=== PATIENT | female | born 1980 | race Caucasian/White ===

== ENCOUNTER → 2021-07-26 08:08 | Outpatient (CLI) | payer BC, SELFPAY ==
[2021-07-26 09:20] LABS: Appearance Urine UA CLEAR; Bilirubin Urine UA NEGATIVE (NEGATIVE); Color Urine UA YELLOW; Glucose Urine UA NEGATIVE (Negative); Ketones Urine UA NEGATIVE (NEGATIVE); Leukocyte Esterase Urine UA TRACE (NEGATIVE); Nitrite Urine UA POSITIVE (Negative); Occult Blood Urine UA TRACE-LYSED (Negative); Protein Urine UA NEGATIVE (Negative); Urobilinogen Urine UA 0.2 E.U./dL (0.2)
[2021-07-26 09:32] LABS: Bacteria Urine Many (>30); RBC Urine 1-5/HPF (0-5/HPF); Squamous Epithelial Cell Urine 1-5 /HPF (0-5/HPF); WBC Urine 1-5/HPF (0-5/HPF)
[2021-07-26 09:51] LABS: Add Manual Diff / Slide Review NO; Basophils Absolute Auto 100 /uL (0-100); Basophils Percent Auto 0.6 % (0-2); Eosinophils Absolute Auto 100 /uL (0-450); Eosinophils Percent Auto 0.7 % (2-4); Hematocrit 40.2 % (36-46); Hemoglobin 13.5 g/dL (12.0-16.0); Lymphocytes Absolute Auto 1700 /uL (1100-4500); Lymphocytes Percent Auto 18.9 % (25-40); Mean Corpuscular HGB Conc 33.6 % (30-36); Mean Corpuscular Hemoglobin 30.4 PG (26-34); Mean Corpuscular Volume 90.5 fL (80-100); Monocytes Absolute Auto 700 /uL (0-900); Monocytes Percent Auto 8.1 % (3-14); Neutrophils Absolute Auto 6300 /uL (1500-7000); Neutrophils Percent Auto 71.7 % (50-75); Platelet Count 328 X10^3/uL (150-400); Red Blood Cell Count 4.45 X10^6/uL (4.0-5.2); Red Cell Distribution Width 12.9 % (11.6-14.8); White Blood Cell Count 8.8 X10^3/uL (4.5-11.0)
[2021-07-26 10:55] LABS: Hepatitis B Surface Antigen NEGATIVE s/c (NEGATIVE); Rubella Antibody IgG 52.6 IU/mL (>15)
[2021-07-26 11:10] LABS: HIV 1 & 2 Ab/Ag 4th Gen Combo NEGATIVE (NEGATIVE); Hep C Virus Ab w/Reflex Quant NEGATIVE s/c (NEGATIVE)
[2021-07-27 06:39] LABS: RPR Screen Non Reactive (Non Reactive)
[2021-07-27 10:51] LABS: Varicella IgG Antibody 353 index (Immune >165)
== END ==
PROVIDERS: Referring Provider Specialist; Visit Provider Specialist
DX: Z34.81 Encounter for supervision of other normal pregnancy, first trimester (principal); Z11.3 Encounter for screening for infections with a predominantly sexual mode of transmission; Z3A.08 8 weeks gestation of pregnancy
CPT/HCPCS: 36415; 80055; 81003; 81015; 86787; 86803; 86850; 86900; 86901; 87077; 87086; 87186; 87389

== ENCOUNTER → 2021-08-18 12:54 | Outpatient (CLI) | payer BC, SELFPAY ==
[2021-08-18 17:02] LABS: Urine Chlamydia NOT DETECTED; Urine N gonorrhoeae NOT DETECTED
== END ==
PROVIDERS: PCP Family Medicine; Referring Provider Specialist; Visit Provider Specialist
DX: O09.521 Supervision of elderly multigravida, first trimester (principal); O26.21 Pregnancy care for patient with recurrent pregnancy loss, first trimester; Z36.0 Encounter for antenatal screening for chromosomal anomalies; Z3A.11 11 weeks gestation of pregnancy
CPT/HCPCS: 36415; 81420; 87491; 87591

== ENCOUNTER → 2021-09-21 12:34 | Outpatient (CLI) | payer BC, SELFPAY ==
[2021-09-23 20:51] LABS: AFP Value 38.6 ng/mL (.); Gest Age on Col Date 16.4 weeks (.); Gestational Age Ultrasound (.); Insulin Dep Diabetes No (.); OSBR Risk 1IN 10000 (.); Results Report (.); Test Results *Screen Negative* (.)
== END ==
PROVIDERS: PCP Family Medicine; Referring Provider Specialist; Visit Provider Specialist
DX: Z34.82 Encounter for supervision of other normal pregnancy, second trimester (principal); Z3A.16 16 weeks gestation of pregnancy
CPT/HCPCS: 36415; 82105

== ENCOUNTER → 2022-02-08 11:23 | Outpatient (CLI) | payer BC, SELFPAY ==
[2022-02-09 08:01] LABS: Strep Grp B PCR NEG for Grp B Strep
== END ==
PROVIDERS: PCP Family Medicine; Visit Provider Specialist
DX: Z34.83 Encounter for supervision of other normal pregnancy, third trimester (principal); Z3A.36 36 weeks gestation of pregnancy
CPT/HCPCS: 87653

== ENCOUNTER 2022-02-11 23:34 | Inpatient (IN) | payer BC, SELFPAY ==
[2022-02-12 00:27] VITALS: BP 118/77
[2022-02-12 01:00] LABS: Add Manual Diff / Slide Review NO; Basophils Absolute Auto 100 /uL (0-100); Basophils Percent Auto 0.4 % (0-2); Eosinophils Absolute Auto 100 /uL (0-450); Eosinophils Percent Auto 0.7 % (2-4); Hematocrit 31.9 % (36-46); Hemoglobin 10.6 g/dL (12.0-16.0); Lymphocytes Absolute Auto 1900 /uL (1100-4500); Lymphocytes Percent Auto 13.1 % (25-40); Mean Corpuscular HGB Conc 33.3 % (30-36); Mean Corpuscular Hemoglobin 28.5 PG (26-34); Mean Corpuscular Volume 85.7 fL (80-100); Monocytes Absolute Auto 1100 /uL (0-900); Monocytes Percent Auto 7.9 % (3-14); Neutrophils Absolute Auto 11300 /uL (1500-7000); Neutrophils Percent Auto 77.9 % (50-75); Platelet Count 258 X10^3/uL (150-400); Red Blood Cell Count 3.72 X10^6/uL (4.0-5.2); Red Cell Distribution Width 15.1 % (11.6-14.8); White Blood Cell Count 14.5 X10^3/uL (4.5-11.0)
[2022-02-12 01:49] LABS: COVID19 -Nasal RAPID Negative (Negative)
[2022-02-12] MEDS: LACTATED RINGERS 1,000 ML 100 ML IV ×3 (04:09→17:11)
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
[2022-02-12] MEDS: OXYTOCIN PREMIX 30 UNIT/500 ML PLAST..BAG IV (08:31)
--- NOTE | 2022-02-12 13:48 | PM.OBPNLAB ---
Date/Time Date Patient Seen: 02/12/22 Time Patient Seen: 13:48 Pain Control Pain control: tolerating well Contractions Contractions on admission: regular Monitor mode: External Pitocin rate (mU/min): 7 Contraction frequency (min): 3 Contraction duration (min): 1 Contraction pattern: Regular Contraction intensity: Moderate Status status: Category ll Heart Rate Baseline: 125 Monitor Accelerations: Present Monitor Decelerations: Late (Resolved with fluid bolus) Monitor Variability: Moderate Assessment and Plan Assessment: induction ongoing Plan: continuous present management
--- NOTE | 2022-02-12 17:30 | PM.OBPNLAB ---
Date/Time Date Patient Seen: 02/12/22 Time Patient Seen: 17:30 Pain Control Pain control: tolerating well Pelvic Exam Dilation (cm): 4 Effacement (%): 80 station: 0 Amniotic membrane status: Ruptured Contractions Contractions on admission: regular Monitor mode: External Pitocin rate (mU/min): 12 Contraction frequency (min): 3 Contraction duration (min): 1 Contraction pattern: Regular Contraction intensity: Moderate Status status: Category l Heart Rate Baseline: 125 Monitor Accelerations: Present Monitor Decelerations: Absent Monitor Variability: Moderate Assessment and Plan Assessment: induction ongoing Comments: Patient coming up on 24 hour rupture membranes will start IV antibiotics.
[2022-02-12] MEDS: CEFAZOLIN 2 GM/20 ML SYRINGE IV (18:27)
--- NOTE | 2022-02-12 20:54 | P.PCN_ITS ---
Regional Block Pre-procedure Attending OB provider: Tonya Campos PMH/ROS narrative: term labor, no complications. ASA Class: II Labs: Hct 31.9 % (36-46) L 02/12/22 00:40 Plt Count 258 X10^3/uL (150-400) 02/12/22 00:40 Medications: Current Medications Generic Name Dose Route Start Last Admin Trade Name Freq PRN Reason Stop Dose Admin Calcium Carbonate 1,000 mg 02/12/22 00:17 Calcium Carbonate 500 Mg Tab PO Q2HR PRN Dyspepsia Carboprost Tromethamine 250 mcg 02/12/22 00:17 Carboprost 250 Mcg/Ml Ampul IM Q90M PRN Bleeding Cefazolin Sodium/Dextrose 2 gm 02/12/22 18:00 02/12/22 18:27 Cefazolin 2 Gm/20 Ml Syringe IV 2 gm Q8H JACOBO Administration Fentanyl 100 mcg 02/12/22 00:17 Fentanyl 100 Mcg/2 Ml Inj IV Q1H PRN Pain, Severe (7-10) Lactated Ringer's 1,000 mls @ 100 mls/hr 02/12/22 00:30 02/12/22 17:11 Lactated Ringers IV 100 mls/hr CONT JACOBO Administration Tranexamic Acid 1,000 mg/ 100 mls @ 200 mls/hr 02/12/22 00:17 Sodium Chloride IV NOW PRN Bleeding Oxytocin/Lactated Ringer's 30 unit in 500 mls @ 200 mls/hr 02/12/22 00:17 Oxytocin Premix IV CONT PRN Bleeding Protocol Oxytocin/Lactated Ringer's 30 unit in 500 mls @ 3 mls/hr 02/12/22 08:28 01/21 02/10 08:31 Oxytocin Premix IV 3 milliunit/min TITRATE JACOBO 3 mls/hr Administration Protocol 3 MILLIUNIT/MIN Methylergonovine Maleate 0.2 mg 02/12/22 00:17 Methylergonovine 0.2 Mg/Ml Vial IM NOW PRN Bleeding Methylergonovine Maleate 0.2 mg 02/12/22 00:17 Methylergonovine 0.2 Mg Tablet PO Q6HR PRN Heavy Bleeding Misoprostol 1,000 mcg 02/12/22 00:17 Misoprostol 200 Mcg Tablet WA NOW PRN Bleeding Misoprostol 400 mcg 02/12/22 00:17 Misoprostol 200 Mcg Tablet SL NOW PRN Bleeding Misoprostol 800 mcg 02/12/22 00:17 Misoprostol 200 Mcg Tablet WA NOW PRN Bleeding Naloxone HCl 0.2 mg 02/12/22 00:17 Naloxone 0.4 Mg/Ml Vial IV Q2MIN PRN Opiate Reversal Ondansetron HCl 4 mg 02/12/22 00:17 Ondansetron 4 Mg/2 Ml Inj IV Q4HR PRN Nausea And Vomiting Oxytocin 10 unit 02/12/22 00:17 Oxytocin 10 Unit/Ml Vial IM NOW PRN Bleeding Terbutaline Sulfate 0.25 mg 02/12/22 04:14 Terbutaline 1 Mg/Ml Vial SUBCUT NOW PRN prolongued cntxn Allergies: Allergies Allergy/AdvReac Type Severity Reaction Status Date / Time cefotetan AdvReac Mild Lots of GI Verified 07/18/21 10:34 issues for an extended period decongestants AdvReac Mild Speeds up Uncoded 07/18/21 10:34 her mind and focus issues Procedure Insertion date: 02/12/22 Insertion time: 21:10 Prep/Local: betadine x3 and 1% lidocaine Interspace: L3-4 Patient position: sitting Needle: 18 gauge Hustead (cse: 27G Pencan through Hustead, clear CSF, 1mL 0.25% bupiv MPF) Loss of resistance with: saline BILL at (cm): 5 Catheter placed at SKIN (cm): 10 Catheter in SPACE (cm): 5 Initial Medications TEST DOSE time: 21:10 TEST DOSE: 1.5% lidocaine with epinephrine 1:200k (mL): 3 Infusion INFUSION: 0.125% bupivacaine and with fentanyl 2 mcg/mL Initial rate (mL/hr): 8 Post-procedure Anesthesia time START: 20:56 Anesthesia time END: 07:20 Post-procedure Anesthesia Assessment: Yes CV function: HR/BP stable, Yes Resp function: RR/sat/airway adequate, Yes Mental status appropriate and No Anesthesia complications
[2022-02-12] MEDS: FENT 2MCG/ML BUPIV 0.125% EPI 200 MCG/100 ML PLAST..BAG 8 MCG EPIDURAL (21:10)
[2022-02-12] MEDS: ePHEDrine 50 MG/ML VIAL IV ×5 (23:11→23:51)
[2022-02-13] MEDS: ePHEDrine 50 MG/ML VIAL IV (00:37)
[2022-02-13] MEDS: LACTATED RINGERS 1,000 ML 100 ML IV ×2 (00:38→00:39)
[2022-02-13] MEDS: CEFAZOLIN 2 GM/20 ML SYRINGE IV (02:25)
[2022-02-13] MEDS: FENT 2MCG/ML BUPIV 0.125% EPI 200 MCG/100 ML PLAST..BAG 6 MCG EPIDURAL (06:40)
--- NOTE | 2022-02-13 07:48 | P.PCNOB_ITS ---
Events: Premature Rupture Membrane and Prolonged Rupture Membrane Labor & Delivery Delivery date: 02/13/22 Intrapartal Events: Prolonged Labor > 20 hours and Prolonged 2nd Stage > 2.5 hours Delivery augmentation: pitocin Delivery monitor: external FHT and external uterine Route of delivery: L&D Laceration Description: Perineal - 1st Degree Delivery repair: chromic (3 0) Estimated blood loss (mL): 250 Anesthesia Type: Epidural Narrative: Patient arrived on Labor and delivery with spontaneous rupture membranes. She did not go into active labor so Pitocin was begun. Patient received an epidural catheter for pain control. heart tones category 1 to category 2 throughout labor. The patient delivered spontaneously, over an intact perineum. The viable female infant was placed on the maternal abdomen. After the cord stopped pulsating the cord was clamped, cut, and cord bloods obtained. The placenta delivered spontaneously, intact, with three-vessel cord. There were no cervical or vaginal tears. A first-degree perineal tear was repaired with 3 0 chromic suture. Estimated blood loss 250 cc. Both baby and mother doing well. [place] Baby 1: Infant gender: Female Presentation: vertex Position: Right Occiput Anterior Placenta delivery description: Spontaneous Cord Vessel Description: 3 Vessels score (1 min): 8 score (5 min): 9 Plan for aftercare: Routine care
[2022-02-13] MEDS: DERMOPLAST SPRAY 20% 60 ML 1 SPRAY TOP (10:26)
[2022-02-13] MEDS: IBUPROFEN 600 MG TABLET PO ×2 (10:26→19:28)
[2022-02-13] MEDS: LANOLIN OINT 7 GM 1 APPLIC TOP (10:26)
[2022-02-13] MEDS: DOCUSATE 100 MG CAPSULE PO (19:29)
[2022-02-14 05:39] LABS: Add Manual Diff / Slide Review NO; Basophils Absolute Auto 100 /uL (0-100); Basophils Percent Auto 0.5 % (0-2); Eosinophils Absolute Auto 100 /uL (0-450); Eosinophils Percent Auto 0.9 % (2-4); Hematocrit 24.1 % (36-46); Hemoglobin 7.9 g/dL (12.0-16.0); Lymphocytes Absolute Auto 2200 /uL (1100-4500); Lymphocytes Percent Auto 15.4 % (25-40); Mean Corpuscular HGB Conc 32.9 % (30-36); Mean Corpuscular Hemoglobin 28.8 PG (26-34); Mean Corpuscular Volume 87.3 fL (80-100); Monocytes Absolute Auto 1300 /uL (0-900); Monocytes Percent Auto 8.9 % (3-14); Neutrophils Absolute Auto 10700 /uL (1500-7000); Neutrophils Percent Auto 74.3 % (50-75); Platelet Count 203 X10^3/uL (150-400); Red Blood Cell Count 2.76 X10^6/uL (4.0-5.2); Red Cell Distribution Width 16.4 % (11.6-14.8); White Blood Cell Count 14.4 X10^3/uL (4.5-11.0)
[2022-02-14] MEDS: IBUPROFEN 600 MG TABLET PO (08:18)
[2022-02-14] MEDS: FERROUS SULFATE 325 MG TABLET PO (08:20)
--- NOTE | 2022-02-14 11:53 | P.DS_ITS ---
Discharge Providers Provider Date of admission: 02/11/22 23:34 Discharge Date: 02/14/22 Primary care physician: Augustina Pritchard MD Consults: 02/12/22 00:17 Consult to Anesthesiology Urgent Comment: Consulting Provider: Anesthesiologist Reason for consultation: Epidural Has provider been notified: No 02/14/22 07:45 Consult to Fermentologist Routine Comment: Discharge provider: Tonya Campos MD Summary Hospital Course Date Patient Seen: 02/14/22 Time Patient Seen: 11:53 Diagnoses: Prolonged rupture membranes, spontaneous vaginal delivery with repair of first- degree tear Hospital Course: Patient arrived on Labor and delivery with spontaneous rupture membranes. She did not go into active labor. She was started on Pitocin and received an epidural catheter for pain control. She had a spontaneous vaginal delivery with repair of a first-degree tear. She is breast-feeding without difficulty. She is urinating and ambulating well. She is passing gas. Pain is under control. Mild to moderate lochia. Peripartum Data Infant Delivery Method: Natural Vaginal Laceration Description: Perineal - 1st Degree Procedures: Pitocin induction, epidural catheter, spontaneous vaginal delivery, repair of first-degree tear complications: none 1: Gender: Female Disposition of : home Discharge Diagnosis (1) Vaginal delivery: Status: Acute Status at Discharge Cognitive/behavioral status at discharge: oriented Functional status at discharge: independent ambulation Overall status at discharge: patient is progressing back to baseline Time Spent with Patient Time attestation: Total time spent providing and/or coordinating discharge services: Time spent: Less than 30 minutes Objective Labs Result Diagrams: 02/14/22 05:10 Labs: Laboratory Results - last 24 hr 02/14/22 05:10 WBC 14.4 H RBC 2.76 L Hgb 7.9 L Hct 24.1 L MCV 87.3 MCH 28.8 MCHC 32.9 RDW 16.4 H Plt Count 203 Neut % (Auto) 74.3 Lymph % (Auto) 15.4 L [place] % (Auto) 8.9 Eos % (Auto) 0.9 L Baso % (Auto) 0.5 Neut # (Auto) 79853 H Lymph # (Auto) 2200 [place] # (Auto) 1300 H Eos # (Auto) 100 Baso # (Auto) 100 Exam Vital Signs (past 8 hours): Blood pressure 116/80, pulse of 90, temperature 98? Narrative Exam Narrative: Abdomen is soft, nontender. Uterus is firm, at U, nontender. Extremities with +1 edema and nontender. Patient is Rh positive, rubella immune, she received Tdap in the 3rd trimester Discharge Plan Discharge Plan Patient Disposition: Home Provider Discharge Comment: Patient is to take the iron supplement she has at home at a different time than the vitamins Discharge orders & Medications Prescriptions: Continued prenat.vits,lisa,[id number] Tablet 1 tab PO DAILY 0RF No Action (DME) Double Electric breast Pump and Supplies See Rx Instructions .ROUTE .MEDSUPPLY Qty: 1 0RF Rx Instructions: Use electric breast pump and supplies as directed for 99 months. LION 03/05/22. Follow up/Referrals: Augustina Pritchard MD [Primary Care Provider] - Tonya Campos MD [Physician] - 03/15/22 4:00 pm (Please see Dr. Campos for your appointment at the clinic in Sunday.) Diet/Activity/Treatments Diet: Regular Activity: Nothing in vagina until seen by Dr. Campos in 1 month Skin/Wound/Dressing Care Report to your healthcare provider any signs of infection, such as:: chills, fever and increased pain Discharge Data Primary Care Provider: Augustina Pritchard
[2022-02-14 14:35] VITALS: BP 120/75; PULSE 89; RESP 18; TEMP 36.8
== END 2022-02-14 15:55 | disposition home or self-care (01) | DRG 807 ==
PROVIDERS: Admitting Provider Specialist; PCP Family Medicine; Referring Provider Specialist; Visit Provider Specialist
DX: O42.02 Full-term premature rupture of membranes, onset of labor within 24 hours of rupture (principal); Z37.0 Single live birth; Z3A.37 37 weeks gestation of pregnancy; O63.1 Prolonged second stage (of labor); O70.0 First degree perineal laceration during delivery; O76 Abnormality in fetal heart rate and rhythm complicating labor and delivery; Z20.822 Contact with and (suspected) exposure to COVID-19
CPT/HCPCS: 01967; 36415; 59050; 59400; 84112; 85025; 86850; 86900; 86901; 87635; C9803; G0379; J0690; J2590